=== PATIENT | male | born 1995 | race African-American/Black ===

== ENCOUNTER 2017-03-31 09:33 | Emergency (ER) | payer SELFPAY ==
[~2017-03-31] VITALS: Ht 167.6 cm; Wt 54.0 kg
[2017-03-31] MEDS ORDERED: CIPR-264 PO (09:41)
[2017-03-31 11:40] VITALS: BP 120/80
[2017-03-31] MEDS ORDERED: ONDANSETRON 4MG ODT PO ONE (12:15)
[2017-03-31 12:47] LABS: HEMATOCRIT. 46.2 % (42.0-52.0); HEMOGLOBIN. 15.6 g/dL (14.0-18.0); MEAN CORPUSCULAR HEMOGLOBIN 26.8 pg (28.0-32.0); MEAN CORPUSCULAR VOLUME 79.8 fL (80.0-94.0); MEAN PLATELET VOLUME 7.8 fl (7.4-10.4); PLATELET 232 x1000/uL (130-400); RED CELL DISTRIBUTION WIDTH 13.9 % (11.6-14.6)
[2017-03-31 12:53] LABS: CHLORIDE 102 mEq/L (98-107)
[2017-03-31 13:04] LABS: CARBON DIOXIDE 28 mEq/L (21-32)
[2017-03-31 13:12] LABS: ATYPICAL LYMPHOCYTES 1
[2017-03-31 13:13] LABS: PLATELET ESTIMATE NORMAL
== END 2017-03-31 13:41 | disposition left against medical advice (07) ==
LOC: ER 11:45
DX: R10.13 Epigastric pain (principal); J45.909 Unspecified asthma, uncomplicated; M19.90 Unspecified osteoarthritis, unspecified site; F12.10 Cannabis abuse, uncomplicated
CPT/HCPCS: 36415; 80053; 83690; 85025; 99284

== ENCOUNTER 2024-07-28 19:11 | Emergency (ER) | payer SELFPAY ==
[~2024-07-28] VITALS: Ht 167.6 cm; Wt 58.0 kg
[~2024-07-28 19:11] MED LIST: CIPR-264 PO
[2024-07-28 19:34] VITALS: TEMP 36.8; O2SAT 99
[2024-07-28 22:20] VITALS: BP 115/80; PULSE 77; RESP 16; O2SAT 100
== END 2024-07-28 22:27 | disposition home or self-care (01) ==
LOC: ER 19:11
DX: K40.90 Unilateral inguinal hernia, without obstruction or gangrene, not specified as recurrent (principal); J45.909 Unspecified asthma, uncomplicated; M19.90 Unspecified osteoarthritis, unspecified site; F12.90 Cannabis use, unspecified, uncomplicated; Z79.899 Other long term (current) drug therapy
CPT/HCPCS: 99281; 99282